=== PATIENT | female | born 1970 | race Caucasian/White ===

== ENCOUNTER 2024-06-22 19:39 | Emergency (ER) | payer BC, SELFPAY ==
[2024-06-22 19:41] VITALS: BP 144/89
--- NOTE | 2024-06-22 20:41 | ED.GENMED ---
History of Present Illness
General
Chief Complaint: Head Injury
Source: patient
Exam Limitations: none
Time Seen by Provider: 06/22/24 19:49
History of Present Illness
History of Present Illness:
53-year-old female on a baby aspirin presents for evaluation of right sided facial puffiness and eye discomfort. This started about 3 weeks ago after she fell hitting the right side of her face. She was not checked at that time. This was 1 week
following open heart surgery. Today she is took a nap and fell asleep on the right side of her face and noticed that her face was puffy again as she looked closer and the right pupil was smaller than the she notes an ongoing clear drainage from her
nose. She denies significant headache or neck pain. No other
Phy Exam
Physical Exam
Physical Exam:
General: Well-appearing female no acute respiratory distress
HEENT: Normocephalic there is extract motions are intact without obvious sign of entrapment. The right pupil measures approximately 3 mm but is reactive to light. Left pupil measures about 4 to 5 mm and is reactive to light. There is no ptosis.
The sclera on the right eye is slightly injected. No significant periorbital deformity or tenderness
Musculoskeletal exam: Cervical spine is nontender with good range of motion
Course
Orders/Labs/Results
Orders:
Orders
06/22/24 19:45
CT Head W/o Iv Contrast Urgent
Comment:
Reason For Exam: head injury, pupils different size
06/22/24 20:11
CT Facial Bones W/o Iv Contras Urgent
Comment:
Reason For Exam: fall right periorbital pain
06/22/24 22:01
CRP [C-Reactive Protein] Urgent
Complete Blood Count/With Diff Urgent
Comprehensive Metabolic Panel Urgent
Sed Rate [Erythrocyte Sed Rate] Urgent
06/22/24 23:02
Gentamicin [Genoptic 0.3% Eye Drops] See Dose Instructions OPHTH NOW STA
Abnormal Lab Results
06/22/24
22:01
RBC 3.68 L 10^6/uL
(4.20-5.40)
Hgb 11.2 L g/dL
(12.0-16.0)
Hct 33.5 L %
(37.0-47.0)
ESR 26 H mm/hour
(0-20)
06/22/24 22:01
06/22/24 22:01
Vital Signs
Initial and Last Documented VS:
Initial Vital Signs
Temp Pulse Resp BP Pulse Ox
98.7 F 79 18 144/89 99
06/22/24 19:41 06/22/24 19:41 06/22/24 19:41 06/22/24 19:41 06/22/24 19:41
Last Documented Vital Signs
Temp Pulse Resp BP Pulse Ox
98.7 F 62 16 111/73 100
06/22/24 19:41 06/22/24 21:56 06/22/24 22:00 06/22/24 21:56 06/22/24 21:56
MDM/Problems Addressed
Differential Diagnosis Includes:
Continued right facial discomfort and right eye discomfort.
Right eye pressure was measured with Travis-Pen and average [address] of head and facial bones.
*Critical Care Note
Total Time (30-74mins, 75-104mins- exclusive of procedures): Not Applicable
Update Note
Update Note:
Recheck patient. CT of head and face negative for acute traumatic finding. Still has aching discomfort in the eye. Recheck pressure and again average around 17 to 18 mmHg. Examined the eye using fluorescein stain and a Chowdary lamp. There was a
very small punctate foreign body in the center portion of the cornea that was easily removed with a moistened cotton swab. Will start on gentamicin drops. She herself works for an eye doctor and plans on following up with them tomorrow for
recheck. Given the eye discomfort and pain with motion I did do inflammatory markers which included a sed rate which was mildly elevated at 26 but not clinically significant and CRP was normal. Do not suspect temporal arteritis.
ED Attending Note
-
Portions of this chart may have been created with voice recognition software.� Occasional wrong word or��sound alike� substitutions may have occurred due to the inherent limitations of voice recognition software.
Discharge Plan
Departure
Patient Disposition: Home (Routine Discharge)
Date of Disposition: 06/22/24
Time of Disposition: 23:09
Patient with high blood pressure during this ER visit?: No
Discharge Problem:
Eye pain
Referrals:
Maria E Kelsey DO [Family Provider] -
Activity Restrictions/Additional Instructions:
Use antibiotic drops every 4 hours. Follow-up with your eye doctor for recheck
Interventions
Interventions:
*Risk Screen - Suicide Last Done: 06/22/24 19:44
*General Assessment Last Done: 06/22/24 19:44
*Neglect/Abuse Screening Last Done: 06/22/24 19:44
*ED- Fall Risk Assessment Last Done: 06/22/24 19:56
*ED COVID-19 Vaccine History Last Done: 06/22/24 19:44
ED- Neurological Assessment Last Done: 06/22/24 20:22
ED-Skin Assessment Last Done: 06/22/24 20:22
Discharge Date and Time
Print Language: PERSIAN
[2024-06-22 21:56] VITALS: BP 111/73
[2024-06-22 22:11] LABS: Hematocrit 33.5 % (37.0-47.0); Hemoglobin 11.2 g/dL (12.0-16.0); Mean Corp Hgb Conc. 33.4 g/dL (33.0-37.0); Mean Corpuscular Hgb 30.4 pg (27.0-31.0); Mean Platelet Volume 9.1 fL (7.4-10.4); Platelet Count 266 10^3/uL (130-400); Red Blood Cell Count 3.68 10^6/uL (4.20-5.40); Red Cell Dist. Width 13.2 % (11.5-14.5)
[2024-06-22 22:19] LABS: Erythrocyte Sed Rate 26 mm/hour (0-20)
[2024-06-22 22:23] LABS: % Immature Granulocytes 0.3 % (0-0.5); % Lymphocytes 32.5 % (20.5-51.1); % Neutrophils 54.2 % (42.2-75.2); Absolute Basophils 0.1 10^3/uL (0-0.2); Absolute Eosinophils 0.3 10^3/uL (0-0.7); Absolute Lymphocytes 2.3 10^3/uL (1.2-3.4); Absolute Monocytes 0.6 10^3/uL (0.1-0.6); Absolute Neutrophils 3.8 10^3/uL (1.4-6.5); Nucleated Red Blood Cells % 0 %
[2024-06-22 22:26] LABS: ALT (SGPT) 14 U/L (0-35); AST (SGOT) 21 U/L (14-36); Albumin 3.8 g/dl (3.5-5.0); Alkaline Phosphatase 74 U/L (38-126); Blood Urea Nitrogen 15 mg/dl (7-17); Calcium 9.4 mg/dl (8.4-10.2); Carbon Dioxide 26 mmol/L (22-30); Chloride 106 mmol/L (98-107); Glucose 98 mg/dl (70-99); Potassium 4.1 mmol/L (3.5-5.1); Sodium 139 mmol/L (135-145); Total Bilirubin 0.7 mg/dl (0.2-1.3); Total Protein 6.6 g/dl (6.3-8.2); eGFR > 60.00
[2024-06-22 22:43] LABS: C-Reactive Protein < 5.00 mg/L (0.0-10.00)
[2024-06-22] MEDS: GENOPTIC 0.3% EYE DROPS 1 DROP OPHTH (23:15)
== END 2024-06-22 23:25 | disposition home or self-care (01) ==
LOC: EMR 19:39
PROVIDERS: Physician Assistant; EMERGENCY PHYSICIAN Student in an Organized Health Care Education/Training Program; FAMILY PHYSICIAN Family Medicine
DX: H57.11 Ocular pain, right eye (principal); R22.0 Localized swelling, mass and lump, head; S09.90XA Unspecified injury of head, initial encounter; T15.01XA Foreign body in cornea, right eye, initial encounter; W19.XXXA Unspecified fall, initial encounter; Z98.890 Other specified postprocedural states; Z88.8 Allergy status to other drugs, medicaments and biological substances
CPT/HCPCS: 99284; 70450; 70486; 80053; 85025; 85652; 86140

== ENCOUNTER → 2024-08-27 10:57 | Outpatient (REF) | payer BC, SELFPAY ==
[2024-08-27 11:58] LABS: % Basophils 1.4 % (0-2); % Eosinophils 2.5 % (0-6); % Immature Granulocytes 0.2 % (0-0.5); % Lymphocytes 32.9 % (20.5-51.1); % Monocytes 10.5 % (1.7-9.3); % Neutrophils 52.5 % (42.2-75.2); Absolute Basophils 0.1 10^3/uL (0-0.2); Absolute Eosinophils 0.1 10^3/uL (0-0.7); Absolute Lymphocytes 1.6 10^3/uL (1.2-3.4); Absolute Monocytes 0.5 10^3/uL (0.1-0.6); Absolute Neutrophils 2.6 10^3/uL (1.4-6.5); Hemoglobin 13.3 g/dL (12.0-16.0); Mean Corp Hgb Conc. 33.3 g/dL (33.0-37.0); Mean Corpuscular Hgb 29.6 pg (27.0-31.0); Mean Corpuscular Volume 89.1 fL (81.0-99.0); Mean Platelet Volume 10.1 fL (7.4-10.4); Nucleated Red Blood Cells % 0 %; Platelet Count 248 10^3/uL (130-400); Red Blood Cell Count 4.49 10^6/uL (4.20-5.40); White Blood Cell Count 4.9 10^3/uL (4.8-10.8)
[2024-08-27 12:45] LABS: ALT (SGPT) 25 U/L (0-35); AST (SGOT) 27 U/L (14-36); Albumin 4.6 g/dl (3.5-5.0); Alkaline Phosphatase 67 U/L (38-126); Blood Urea Nitrogen 18 mg/dl (7-17); Calcium 9.6 mg/dl (8.4-10.2); Carbon Dioxide 25 mmol/L (22-30); Chloride 106 mmol/L (98-107); Glucose 90 mg/dl (70-99); HDL Cholesterol 88 mg/dl; Iron 124 ug/dl (37-170); LDL Cholesterol, Calculated 121 mg/dl; Potassium 4.6 mmol/L (3.5-5.1); Sodium 140 mmol/L (135-145); Total Bilirubin 1.3 mg/dl (0.2-1.3); Total Cholesterol 219 mg/dl (50-199); Total Protein 7.8 g/dl (6.3-8.2); Triglyceride 54 mg/dl (10-149); Very Low Density Lipoprotein 10 mg/dl (0-30); eGFR > 60.00
[2024-08-27 12:55] LABS: Percent Saturation 35 % (20-50); Total Iron Binding Capacity 350 ug/dl (265-497)
== END ==
LOC: REG 10:57
PROVIDERS: ATTENDING PHYSICIAN Student in an Organized Health Care Education/Training Program
DX: D64.9 Anemia, unspecified (principal)
CPT/HCPCS: 36415; 80053; 80061; 83540; 83550; 85025

== ENCOUNTER 2024-09-01 16:15 | Outpatient (RCR) | payer BC, SELFPAY | END 2024-09-01 23:59 | disposition home or self-care (01) | LOC: CRHB 16:15 | PROVIDERS: ATTENDING PHYSICIAN Internal Medicine; FAMILY PHYSICIAN Family Medicine | DX: Z95.2 Presence of prosthetic heart valve (principal) | CPT/HCPCS: 93797; 93798 ==